=== PATIENT | female | born 2005 | race Asian ===

== ENCOUNTER 2025-03-22 01:02 | Emergency (ER) | payer OTHER, MEDICAID, SELFPAY ==
[2025-03-22 01:02] VITALS: BMI 25.6
[2025-03-22 01:06] VITALS: BP 143/86; PULSE 77; RESP 16; TEMP 36.4; O2SAT 98
--- NOTE | 2025-03-22 01:56 | EKG_ITS ---
[facility] Test Date: 2025-03-22 Pat Name: BELTRAN ANTOINE Department: Room: - Gender: Female [employer] Supervisor: : [id number] Requested By: Sharif Schmitz Order Number: [id number] Reading MD: Sharif Schmitz Measurements Intervals [place] Rate: 67 P: 43 AK: 156 QRS: 69 QRSD: 97 T: 42 QT: 407 QTc: 432 Interpretive Statements SINUS RHYTHM WITH SINUS ARRHYTHMIA No previous ECG available for comparison /store/S0/[id number]
--- NOTE | 2025-03-22 02:00 | EDNOTE_ITS ---
ED Dizzyness RME/HPI General Chief Complaint: Dizziness Stated Complaint: HIGH BP; DIZZINESS; NAUSEA Time Seen by Provider: 03/22/25 01:04 Arrival date/time: 03/22/25 01:02 RME / HPI RME / HPI Narrative: 19-year-old female with a past medical history of preeclampsia and hypertension in during her last which was last year who is complaining of dizziness which started while she was at the gym however has been persistent since then. Patient states it is not exertional as she has it even at rest. Patient does describe her dizziness as being lightheaded associated with a mild gradual onset headache similar to her prior devious headaches. Patient's mother is a nurse and she checked her blood pressure when she was at home just after she began feeling this way at around 8 PM last night and it was noted to be sys tolic of 173. Denies loss of consciousness, fever, chest pain, shortness of breath, vision changes, numbness, tingling, weakness, palpitations. MD complaint: lightheadedness Related Data Home Medications ?Medication ?Instructions ?Recorded ?Confirmed albuterol sulfate 90 mcg/actuation ##18 08/04/15 aerosol inhaler (Ventolin HFA) Previous Rx's ?Medication ?Instructions ?Recorded prednisolone 15 mg/5 mL oral 6 ml PO QAM #30 mL solution metoclopramide HCl 10 mg tablet 10 mg PO Q6H PRN nause a and 08/21/23 (Reglan) vomiting #14 tabs simethicone 180 mg capsule 180 mg PO BID PRN abdominal 08/21/23 distention #30 caps Allergies Allergy/AdvReac Type Severity Reaction Status Date / Time No Known Allergies Allergy Verified 03/22/25 01:04 Review of Systems Review of Systems Systems Reviewed: All systems reviewed, normal except as documented ED Exam Narrative Physical exam: Constitutional: Patient alert and oriented. Well appearing. No acute distress. Not toxic appearing. Head: Normocephalic, atraumatic. Eyes: Periorbital regions bilaterally normal to inspection. Conjunctiva clear bilaterally. Sclera anicteric bilaterally. Pupils equal, round, reactive to light bilaterally. Extraocular movements intact bilaterally. Mouth/Throat: Mucous membranes moist. No stridor or muffled voice. Handling secretions without difficulty. Airway widely patent. Neck: Supple. Trachea midline. No JVD. No nuchal rigidity. Normal range of mot ion. Respiratory: Normal effort. No accessory muscle use or respiratory distress. Lungs clear to auscultation bilaterally without rhonchi, wheezes, or crackles. Cardiovascular: RRR. Normal S1/S2. No murmurs or rubs. Radial pulses intact bilaterally. Abdomen: Soft. Non-distended. Non-tender throughout. No pulsatile mass. No guarding or rebound. Negative Ash?s sign. Negative McBurney?s point t enderness. Negative Rovsing?s. Back: No midline tenderness or step-offs. No CVA tenderness to palpation bilaterally. Upper Extremities: No gross deformities. Lower Extremities: No gross deformities. No edema or calf tenderness. Neuro: Speech normal. No gross motor or sensory deficits to upper or lower extremities bilaterally. GCS 15. CN II?XII grossly intact. Cerebellar: [id number] testing normal. Rapid alternating movements intact. Normal gait observed. Romberg negative. Skin: Warm, dry, normal color. Psych: Normal affect. Cooperative. Normal insight. Course Course Course Narrative: EKG sinus rhythm with sinus arrhythmia at a rate of 67, QTc 432, no preexcitation syndrome. Normal axis. No ST elevation or T wave inversions. No Brugada. labs without severe metabolic or electrolyte abnormality, urine contaminated pending urine culture as she does have pyuria. However patient is without dysuria, urinary frequency or burning or tingling or fever or vomiting therefore she is asymptomatic with regards to this risk and benefits of empiric treatment discussed with patient who declined however she is agreeable to calling back in 2 to 3 days for her urine culture results to see if she needs any antibiotics. Additionally patient's blood pressure has been stable here in the ER and her lightheadedness has improved, patient has been observed without recurrence of symptoms and is safe for discharge home no evidence of endorgan damage or hypertensive emergency patient patient safe to follow-up with her PMD. Quality Measures none Orders Category Date Time Status EKG (ED ONLY) *Do not use* NOW Care 03/22/25 01:56 Completed EKG (ED Only) Stat Exams 03/22/25 01:56 Draft CBC [CBC] Stat Lab 03/22/25 02:14 Completed CMP [Comprehensive Metabolic Panel] Stat Lab 03/22/25 02:14 Completed HCG Qualitative,Urine Stat Lab 03/22/25 02:17 Completed Urinalysis, C/S if Indicated Stat Lab 03/22/25 02:17 Completed Urine Culture Stat Lab 03/22/25 02:17 Received Reevaluation(s) Reevaluation #1: At the time of reassessment, the patient remains alert and oriented ?3 with GCS 15. Vitals are normal, pain is controlled, and the patient is tolerating oral intake without nausea or vomiting. The patient is agreeable to discharge and verbalizes understanding of the diagnosis, studies, treatment plan, medications (including side effects/precautions), and strict ER return precautions as discussed in the ED. All concerns were addressed, and the patient is comfortable with the plan. Vital Signs Vital signs: Vital Signs Temperature 97.5 F 03/22/25 01:06 Pulse Rate 77 03/22/25 01:06 Respiratory Rate 16 03/22/25 01:06 Blood Pressure 143/86 H 03/22/25 01:06 Pulse Oximetry (%) 98 03/22/25 01:06 Oxygen Delivery Method Room Air 03/22/25 01:06 Dizziness MDM Narrative MDM Narrative:: Suspect: Non-cardiovascular causes: Reflex mechanisms (vasovagal, vasodepressor/neuro cardiogenic syncope), situational (micturition, deglutition, cough). Psychogenic causes: Anxiety, panic disorder, hysterical/functional (cannot be excluded). Orthostatic hypotension: Considered (dysautonomias, fluid depletion, illness, bedrest, deconditioning). Doubt significant orthostasis based on HPI and exam, though mild fluid depletion cannot be ruled out ? patient is safe for oral hydration. Low suspicion for below: Seizure: Undiagnosed seizure considered but doubted given lack of seizure history and absence of other seizure symptoms (tongue bite, postictal state, tonic-clonic activity). Drug-induced: Considered (alcohol, illicit drugs, prescribed medications), but doubted given negative history and presentation. Cardiovascular causes: Arrhythmic and nonarrhythmic etiologies (structural cardiac disease, valvular disease, ischemia) considered. Doubt due to lack of risk factors, normal exam, reassuring EKG, and overall benign clinical presentation. Course/Disposition: This patient is clinically well appearing. Careful history, physical exam, and ED testing show no signs of a serious cause of lightheadedness/syncope such as arrhythmia, anemia, seizure, serious neurologic, or structural cardiovascular disease. Admission was considered; however, given the negative evaluation in the ED and stable presentation, admission is unlikely to provide additional benefit or identify a serious etiology at this time. The patient is safe for home observation, oral hydration encouraged, and strict return precautions were discussed. Close follow-up with primary physician is recommended. Patient data External records reviewed:: None Clinical information provided by:: patient Social determinants that could affect healthcare access:: none Patient has the following chronic illnesses:: None How is presenting disease/condition affected by chronic disease/condition?: no chronic disease Evaluation data The following diagnostics were reviewed and interpreted by me:: other (specify) Lab and/or radiology exams considered but not ordered:: Labs and radiology considered, but not ordered as they were not clinically in dicated at this time. Interpretation Summary: No severe metabolic or electrolyte abnormality EKG without acute ischemia or arrhythmia, urine contaminated Medications / Prescriptions Medications or Prescriptions considered but not ordered:: I considered prescription management (both outpatient prescriptions AND drug treatment in the ER) and decided that this was necessary and was prescribed as charted. Medication administrations:: None Consultations Consultation(s) initiated? (list below): No Diagnosis Dizziness Differential Diagnosis: orthostatic hypotension and other Most likely diagnosis given after review of the tests above:: near syncope Admission Indicated Admission indicated?: not indicated Explain why admission is indicated or not indicated:: Escalation of care including admission/observation considered but I decided to discharge because based on the overall clinical presentation, and after consideration of the patient's course in the emergency department and plan for outpatient management, I believe that neither further observation nor inpatient care is required at this time. Admission Request Was there a request for admission?: No Disposition Plan Disposition Plan: Discharge Discharge Attestation Discharge Attestation: The patient and all family members were given an opportunity to ask questions and understood the discharge instructions. Discharge instructions specifically effects, indications for sooner follow up or return to the emergency department, and the expected course of current diagnosis. Patient condition: Stable Discharge Plan Plan Patient Disposition: HOME (Self Care) Discharge Disposition comment: Follow up with your primary medical doctor within 24 hours. Return to the Emergency Room immediately for any new, worsening, continuing symptoms or any concerns at all. Return to the Emergency Room within 24 hours if you are unable to follow up with your primary medical doctor within 24 hours. Give us a call in 3 days to check up on your urine culture. Keep a home blood pressure log and bring it to your PCP in the next 5 days. Patient condition on transfer: Stable Prescriptions/Referrals Prescriptions/Med Rec: No Action albuterol sulfate [Ventolin HFA] 200 PUFF/INH HFA aerosol inhaler Qty: 18 prednisolone 15 MG/5 ML syrup 6 ml PO QAM Qty: 30 0RF simethicone 180 mg capsule 180 mg PO BID PRN (Reason: abdominal distention) Qty: 30 0RF metoclopramide HCl [Reglan] 10 mg tablet 10 mg PO Q6H PRN (Reason: nausea and vomiting) Qty: 14 0RF Referrals: Artemio Up MD [Primary Care Provider, Family Practice] - In 1 week Problem List Clinical Impression: Near syncope Patient/Caregiver Discharge Instructions Education Materials: ED Near-Fainting, Uncertain Cause Print Language: [place] Citizen Stand Alone Forms: Cecilia Award Info., Patient Portal Info Letter
[2025-03-22 02:29] LABS: Collection Type, Urine Clean Catch
[2025-03-22 02:33] LABS: Basophils # (Auto) 0.0 Thou/mm3 (0.0-0.2); Basophils % (Auto) 0 % (0-2.5); Eosinophils # (Auto) 0.2 Thou/mm3 (0.0-0.5); Eosinophils % (Auto) 3 % (0-10); Hematocrit 40.2 % (36.0-46.0); Hemoglobin 12.8 g/dL (12.0-16.0); Immature Granulocytes Auto 0.01 Thou/mm3 (0.00-0.00); Lymphocytes # (Auto) 3.1 Thou/mm3 (1.0-4.8); Lymphocytes % (Auto) 45 % (10-50); Mean Corpuscular HGB Conc 31.8 g/dl (31.0-37.0); Mean Corpuscular Hemoglobin 26.1 pg (25.0-35.0); Mean Corpuscular Volume 82 fL (80-100); Monocytes # (Auto) 0.6 Thou/mm3 (0.0-0.8); Monocytes % (Auto) 8 % (0-12); Neutrophils # (Auto) 3.1 Thou/mm3 (1.8-7.7); Neutrophils % (Auto) 44 % (37-80); Nucleated Red Blood Cell # 0.00 Thou/mm3 (0.00-0.00); Nucleated Red Blood Cell % 0 /100 WBC (0); Platelet Count 289 Thou/mm3 (140-440); RDW Standard Deviation 46.5 fL (36.4-46.3); Red Blood Count 4.90 Miln/mm3 (4.00-5.20); White Blood Count 6.9 Thou/mm3 (3.6-11.0)
[2025-03-22 02:46] LABS: Bilirubin,Urine Negative (Negative); Blood,Urine Negative (Negative); Clarity,Urine Clear (Clear/Hazy); Color,Urine Yellow (Lt Yel-Yel); Glucose, Urine Negative (Negative); Ketones,Urine 3+ (Negative); Leukocyte Esterase,Urine Positive (Negative); Nitrite,Urine Negative (Negative); PH,Urine 6.0 (5.0-7.0); Protein,Urine 1+ (Neg - Trace); RBC,Urine 5 /hpf (0-3); Specific Gravity,Urine 1.034 (1.001-1.035); Squamous Epithelial Cell,Urine 7 /hpf (0-5); Urobilinogen,Urine Negative mg/dL (0.0-1.0); WBC,Urine 16 /hpf (0-5)
[2025-03-22 02:59] LABS: Alanine Aminotransferase < 7 U/L (10-49); Albumin, Serum 4.7 gm/dL (3.5-5.0); Albumin/Globulin Ratio 1.4 (1.2-2.2); Alkaline Phosphatase 66 U/L (46-116); Anion Gap 11 (7-16); Aspartate Amino Transferase 24 U/L (0-34); BUN/Creatinine Ratio 11 Ratio (12-20); Bilirubin,Total 0.3 mg/dL (0.3-1.2); Blood Urea Nitrogen 8 mg/dL (9-23); Calcium 9.9 mg/dL (8.3-10.6); Calcium (Corrected) 9.9 mg/dL (8.5-10.1); Carbon Dioxide 24.6 mMol/L (20.0-31.0); Chloride 105 mMol/L (98-107); Creatinine (Component) 0.7 mg/dL (0.6-1.3); Estimated Creatinine Clearance 111.3 mL/min (>60); Globulin 3.4 gm/dL (2.3-3.5); Glucose 84 mg/dL (74-106); Osmolality,Calculated 278 (275-295); Potassium 3.4 mMol/L (3.4-5.1); Sodium 141 mMol/L (136-145); Total Protein 8.1 gm/dL (5.7-8.2); eGFR > 60 See Note
[2025-03-22 03:02] LABS: Culture Indicated,Urine Yes
[2025-03-22 03:23] LABS: HCG Qualitative,Urine Negative
== END 2025-03-22 06:07 | disposition home or self-care (01) ==
PROVIDERS: Emergency Provider Emergency Medicine; PCP Family Medicine
DX: R55 Syncope and collapse (principal); I49.8 Other specified cardiac arrhythmias
CPT/HCPCS: 36415; 80053; 81001; 81025; 85025; 87086; 93005; 99283